=== PATIENT | female | born 1965 | race Caucasian/White ===

== ENCOUNTER 2021-02-27 15:02 | Emergency (ER) | payer OTHER ==
[2021-02-27] MEDS ORDERED: Lidocaine 1% w/Epinephrine 1:100K 20 ML VIAL ONE (16:47)
[2021-02-27] MEDS ORDERED: Bacitracin 1 PK ONE (16:47)
[2021-02-27] MEDS ORDERED: Boostrix 0.5 ML (Tdap) VIAL ONE (17:31)
== END 2021-02-27 17:59 | disposition home or self-care (01) ==
LOC: CSHERS 15:02
DX: S01.111A Laceration without foreign body of right eyelid and periocular area, initial encounter (principal); M54.2 Cervicalgia; W19.XXXA Unspecified fall, initial encounter
CPT/HCPCS: 12011; 70450; 72125; 90471; 90715

== ENCOUNTER 2023-01-18 19:39 | Emergency (ER) | payer OTHER ==
[2023-01-18 21:33] LABS: #Basophils 0.1 10x3/uL (0.0-0.2); #Eosinphils 0.1 10x3/uL (0.0-0.5); #Monocytes 0.5 10x3/uL (0.0-1.1); #Neutrophils 5.7 10x3/uL (1.5-8.4); %Basophils 0.6 % (0.0-2.0); %Eosinophils 1.1 % (0.0-6.0); %Lymphocytes 24.7 % (18.0-47.0); %Monocytes 5.9 % (0.0-10.0); %Neutrophils 67.6 % (40.0-75.0); Hemoglobin 13.1 g/dL (12.0-15.5); Mean Corpuscular HGB CONC 32.3 g/dL (32.0-36.0); Mean Corpuscular Hemoglobin 29.2 pg (27.0-33.0); Mean Corpuscular Volume 90.2 fl (81.6-98.3); Mean Platelet Volume 9.4 fl (7.4-10.4); Platelet Count 292 10x3/uL (150-450); RBC Distribution Width 12.8 % (11.5-14.5); Red Blood Cell (RBC) Count 4.49 10x6/uL (3.90-5.03); White Blood Cell (WBC) Count 8.5 10x3/uL (3.5-10.5)
[2023-01-18 21:40] LABS: ALT (SGPT) 20 U/L (8-55); AST (SGOT) 18 U/L (5-34); Albumin 4.1 g/dL (3.5-5.0); Alkaline Phosphatase 105 U/L (40-110); Anion Gap 14 mmol/L (10-20); BUN (Urea Nitrogen) 8 mg/dL (9.8-20.1); Bilirubin, Total 0.4 mg/dL (0.2-1.2); Calc. Creatinine Clearance 0 mL/min (70-130); Carbon Dioxide 26 mmol/L (22-29); Chloride 103 mmol/L (98-107); Estimated GFR 73; Globulin 2.6 g/dL (2.4-3.5); Glucose 100 mg/dL (70-105); Lipase 16 U/L (8-78); Protein, Total 6.7 g/dL (6.0-8.3); Sodium 139 mmol/L (136-145)
[2023-01-18 21:54] LABS: Bilirubin Neg (Negative); Blood, Urine Negative (Negative); Clarity Clear (Clear); Glucose, Urine (Dipstick) Normal (Negative); Ketone, Urine Negative (Negative); Leukocyte Negative (Negative); Nitrite Negative (Negative); Protein, Urine (Dipstick) Negative (Neg-Trace); Specific Gravity, Urine 1.005 (1.005-1.030); Urobilinogen Normal mg/dL (Less than 2)
[2023-01-18] MEDS ORDERED: GoLYTELY 4,000 ml Bottle PO ONE (22:30)
== END 2023-01-18 22:40 | disposition home or self-care (01) ==
LOC: CSHERS 19:39
DX: K59.00 Constipation, unspecified (principal); E78.5 Hyperlipidemia, unspecified; E78.00 Pure hypercholesterolemia, unspecified; I10 Essential (primary) hypertension
CPT/HCPCS: 36415; 74176; 80053; 81003; 83690; 85025

== ENCOUNTER 2023-01-21 15:11 | Outpatient (CLI) | payer OTHER | END 2023-01-21 15:12 | disposition home or self-care (01) | LOC: CSHCT 15:11 | PROVIDERS: ATTEND Family Medicine | DX: F03.B0 Unspecified dementia, moderate, without behavioral disturbance, psychotic disturbance, mood disturbance, and anxiety (principal) | CPT/HCPCS: 70450 ==

== ENCOUNTER 2023-06-06 13:31 | Outpatient (CLI) | payer OTHER | END 2023-06-06 13:32 | disposition home or self-care (01) | LOC: CSHRAD 13:31 | PROVIDERS: ATTEND Nurse Practitioner Family | DX: R10.11 Right upper quadrant pain (principal); R10.31 Right lower quadrant pain; M25.512 Pain in left shoulder; R19.5 Other fecal abnormalities; M19.012 Primary osteoarthritis, left shoulder; M24.012 Loose body in left shoulder | CPT/HCPCS: 74018 ==

== ENCOUNTER 2023-07-26 16:48 | Inpatient (IN) | payer OTHER ==
[~2023-07-26 16:48] MED LIST: Iopamidol 300 61% 100 ML VIAL FS ONE
[2023-07-26 17:46] LABS: ALT (SGPT) 17 U/L (8-55); AST (SGOT) 19 U/L (5-34); Alkaline Phosphatase 104 U/L (40-110); Anion Gap 14 mmol/L (10-20); BUN (Urea Nitrogen) 9 mg/dL (9.8-20.1); Bilirubin, Total 0.5 mg/dL (0.2-1.2); Calc. Creatinine Clearance 0 mL/min (70-130); Calcium 9.1 mg/dL (7.8-10.44); Carbon Dioxide 27 mmol/L (22-29); Chloride 105 mmol/L (98-107); Estimated GFR 69; Globulin 2.3 g/dL (2.4-3.5); Glucose 114 mg/dL (70-105); Potassium 3.9 mmol/L (3.5-5.1); Protein, Total 6.3 g/dL (6.0-8.3); Sodium 142 mmol/L (136-145)
[2023-07-26 17:51] LABS: #Eosinphils 0.1 10x3/uL (0.0-0.5); #Monocytes 0.4 10x3/uL (0.0-1.1); %Basophils 0.7 % (0.0-2.0); %Eosinophils 1.4 % (0.0-6.0); %Lymphocytes 36.3 % (18.0-47.0); %Monocytes 6.3 % (0.0-10.0); %Neutrophils 55.1 % (40.0-75.0); Hematocrit 40.7 % (34.9-44.5); Hemoglobin 13.1 g/dL (12.0-15.5); Mean Corpuscular HGB CONC 32.2 g/dL (32.0-36.0); Mean Corpuscular Hemoglobin 28.3 pg (27.0-33.0); Mean Corpuscular Volume 87.9 fl (81.6-98.3); Mean Platelet Volume 9.7 fl (7.4-10.4); Platelet Count 283 10x3/uL (150-450); RBC Distribution Width 13.8 % (11.5-14.5); Red Blood Cell (RBC) Count 4.63 10x6/uL (3.90-5.03); White Blood Cell (WBC) Count 5.5 10x3/uL (3.5-10.5)
[2023-07-26] MEDS ORDERED: Morphine 4 MG/ML VIAL ONE (18:09)
[2023-07-26] MEDS ORDERED: Ondansetron PF 4 MG/2 ML Vial ONE (18:10)
[2023-07-26] MEDS ORDERED: Magnesium Citrate 300 ML BOT PO SCH (20:00)
[2023-07-26] MEDS ORDERED: Mineral Oil ENEMA ONE (20:37)
[2023-07-26 20:55] LABS: Bilirubin Neg (Negative); Blood, Urine Negative (Negative); Clarity Clear (Clear); Glucose, Urine (Dipstick) Normal (Negative); Ketone, Urine Negative (Negative); Leukocyte Negative (Negative); Nitrite Negative (Negative); Protein, Urine (Dipstick) Negative (Neg-Trace); Urobilinogen Normal mg/dL (Less than 2)
[2023-07-26 21:25] LABS: Bacteria/HPF None Seen HPF (None Seen); CAUTI Indications for Culture Pelvic or flank pain; RBC/HPF None Seen HPF (0-3); Squamous Epithelial 0-3 HPF (0-3); WBC/HPF None Seen HPF (0-3)
[2023-07-26 21:26] LABS: Urine Culture Reflex No No
[2023-07-27] MEDS ORDERED: Ondansetron ODT 4 MG TAB PO PRN (00:01)
[2023-07-27] MEDS ORDERED: GoLYTELY 4,000 ml Bottle PO SCH (00:30)
[2023-07-27] MEDS ORDERED: Meclizine HCl 12.5 MG TAB PO SCH (00:30)
[2023-07-27 00:40] LABS: Magnesium 2.1 mg/dL (1.6-2.6)
[2023-07-27 00:49] VITALS: BMI 23.3
[2023-07-27] MEDS: Potassium Chloride 20 MEQ in Lactated Ringer's 1,000 ML IV SCH ×2 (02:33→16:22)
[2023-07-27] MEDS: Mineral Oil ENEMA PR SCH ×3 (02:34→06:12)
[2023-07-27 04:31] LABS: #Basophils 0.1 10x3/uL (0.0-0.2); #Monocytes 0.4 10x3/uL (0.0-1.1); #Neutrophils 4.1 10x3/uL (1.5-8.4); %Basophils 0.8 % (0.0-2.0); %Eosinophils 0.6 % (0.0-6.0); %Lymphocytes 25.9 % (18.0-47.0); %Neutrophils 65.5 % (40.0-75.0); Hematocrit 38.4 % (34.9-44.5); Hemoglobin 12.1 g/dL (12.0-15.5); Mean Corpuscular HGB CONC 31.5 g/dL (32.0-36.0); Mean Corpuscular Volume 92.1 fl (81.6-98.3); Mean Platelet Volume 9.8 fl (7.4-10.4); Platelet Count 236 10x3/uL (150-450); RBC Distribution Width 13.8 % (11.5-14.5); Red Blood Cell (RBC) Count 4.17 10x6/uL (3.90-5.03); White Blood Cell (WBC) Count 6.3 10x3/uL (3.5-10.5)
[2023-07-27 04:43] LABS: Anion Gap 13 mmol/L (10-20); BUN (Urea Nitrogen) 6 mg/dL (9.8-20.1); Calc. Creatinine Clearance 0 mL/min (70-130); Calcium 8.7 mg/dL (7.8-10.44); Carbon Dioxide 28 mmol/L (22-29); Chloride 104 mmol/L (98-107); Estimated GFR 84; Glucose 91 mg/dL (70-105); Potassium 4.6 mmol/L (3.5-5.1); Sodium 140 mmol/L (136-145)
[2023-07-27] MEDS ORDERED: Mineral Oil ENEMA PR SCH (07:00)
[2023-07-27] MEDS: Senokot 8.6 MG TAB PO SCH ×2 (08:52→21:19)
[2023-07-27] MEDS: Polyethylene Glycol 3350 17 GM Packet PO SCH (08:52)
[2023-07-27] MEDS ORDERED: traMADol HCl 50 MG TAB PO SCH (10:00)
[2023-07-27] MEDS ORDERED: Ipratropium/Albuterol 3 ML NEB NEB PRN ×2 (17:25→17:36)
[2023-07-27] MEDS ORDERED: Ketorolac Tromethamine 30 MG/ML VIAL IVP PRN (18:36)
[2023-07-27] MEDS ORDERED: hydrALAZINE 20 MG/ML VIAL SLOW IVP PRN (18:48)
[2023-07-27] MEDS: Morphine 4 MG/ML VIAL SLOW IVP PRN (18:57)
[2023-07-27] MEDS: Ondansetron PF 4 MG/2 ML Vial IVP PRN (19:03)
[2023-07-28 04:03] LABS: Lactic Acid 0.6 mmol/L (0.5-2.2)
[2023-07-28 04:04] LABS: Anion Gap 16 mmol/L (10-20); BUN (Urea Nitrogen) 6 mg/dL (9.8-20.1); Calc. Creatinine Clearance 80 mL/min (70-130); Calcium 8.9 mg/dL (7.8-10.44); Carbon Dioxide 25 mmol/L (22-29); Chloride 104 mmol/L (98-107); Estimated GFR 87; Glucose 106 mg/dL (70-105); Potassium 4.4 mmol/L (3.5-5.1); Sodium 141 mmol/L (136-145)
[2023-07-28 04:09] LABS: Hematocrit 37.5 % (34.9-44.5); Hemoglobin 12.1 g/dL (12.0-15.5); Mean Corpuscular HGB CONC 32.3 g/dL (32.0-36.0); Mean Corpuscular Hemoglobin 28.5 pg (27.0-33.0); Mean Corpuscular Volume 88.4 fl (81.6-98.3); Mean Platelet Volume 9.7 fl (7.4-10.4); Platelet Count 246 10x3/uL (150-450); RBC Distribution Width 13.9 % (11.5-14.5); Red Blood Cell (RBC) Count 4.24 10x6/uL (3.90-5.03); White Blood Cell (WBC) Count 10.7 10x3/uL (3.5-10.5)
[2023-07-28] MEDS: Potassium Chloride 20 MEQ in Lactated Ringer's 1,000 ML IV SCH ×2 (06:33→15:16)
[2023-07-28] MEDS: Morphine 4 MG/ML VIAL SLOW IVP PRN (07:45)
[2023-07-28] MEDS: Polyethylene Glycol 3350 17 GM Packet PO SCH (07:46)
[2023-07-28] MEDS: Pantoprazole 40 MG VIAL IVP SCH (07:46)
[2023-07-28] MEDS: Senokot 8.6 MG TAB PO SCH ×3 (09:48→21:01)
[2023-07-28] MEDS: Ondansetron PF 4 MG/2 ML Vial IVP PRN (12:44)
[2023-07-28] MEDS ORDERED: DULoxetine 30 MG CAP PO SCH (15:00)
[2023-07-28] MEDS: Gabapentin 400 MG CAP PO SCH ×2 (15:15→21:01)
[2023-07-29] MEDS: Naloxegol 12.5 MG TAB PO SCH (07:38)
[2023-07-29] MEDS: Senokot 8.6 MG TAB PO SCH ×2 (08:46→20:51)
[2023-07-29] MEDS: DULoxetine 30 MG CAP PO SCH (08:46)
[2023-07-29] MEDS: Polyethylene Glycol 3350 17 GM Packet PO SCH (08:46)
[2023-07-29] MEDS: Pantoprazole 40 MG VIAL IVP SCH (08:47)
[2023-07-29] MEDS: Gabapentin 400 MG CAP PO SCH ×3 (08:47→20:50)
[2023-07-29] MEDS: traMADol HCl 50 MG TAB PO PRN (12:17)
[2023-07-29] MEDS: Morphine 4 MG/ML VIAL SLOW IVP PRN (13:37)
[2023-07-29] MEDS: Potassium Chloride 20 MEQ in Lactated Ringer's 1,000 ML IV SCH (14:30)
[2023-07-29 14:48] LABS: Troponin I 0.013 ng/mL (< 0.028)
[2023-07-29 17:30] LABS: Troponin I Less than 0.010 ng/mL (< 0.028)
[2023-07-29] MEDS ORDERED: traZODone HCl 50 MG TAB PO SCH (21:00)
[2023-07-30] MEDS: Potassium Chloride 20 MEQ in Lactated Ringer's 1,000 ML IV SCH ×3 (04:03→23:55)
[2023-07-30] MEDS: DULoxetine 30 MG CAP PO SCH (08:14)
[2023-07-30] MEDS: Pantoprazole 40 MG VIAL IVP SCH (08:14)
[2023-07-30] MEDS: Polyethylene Glycol 3350 17 GM Packet PO SCH (08:14)
[2023-07-30] MEDS: Gabapentin 400 MG CAP PO SCH ×3 (08:15→20:19)
[2023-07-30] MEDS: Naloxegol 12.5 MG TAB PO SCH (08:36)
[2023-07-30] MEDS: Senokot 8.6 MG TAB PO SCH ×2 (08:37→20:19)
[2023-07-30] MEDS: traMADol HCl 50 MG TAB PO PRN ×2 (15:36→21:54)
[2023-07-30] MEDS ORDERED: traZODone HCl 50 MG TAB PO SCH (21:30)
[2023-07-30] MEDS: Morphine 4 MG/ML VIAL SLOW IVP PRN (21:45)
[2023-07-31] MEDS: Naloxegol 12.5 MG TAB PO SCH (06:59)
[2023-07-31] MEDS ORDERED: Iopamidol 300 61% 100 ML VIAL FS ONE (08:47)
[2023-07-31 09:27] LABS: ALT (SGPT) 25 U/L (8-55); AST (SGOT) 25 U/L (5-34); Albumin 3.4 g/dL (3.5-5.0); Alkaline Phosphatase 101 U/L (40-110); Anion Gap 14 mmol/L (10-20); BUN (Urea Nitrogen) 5 mg/dL (9.8-20.1); Bilirubin, Total 0.5 mg/dL (0.2-1.2); Calc. Creatinine Clearance 73 mL/min (70-130); Calcium 9.2 mg/dL (7.8-10.44); Carbon Dioxide 27 mmol/L (22-29); Chloride 105 mmol/L (98-107); Estimated GFR 84; Globulin 2.6 g/dL (2.4-3.5); Glucose 93 mg/dL (70-105); Potassium 4.8 mmol/L (3.5-5.1); Sodium 141 mmol/L (136-145)
[2023-07-31 09:34] LABS: Hematocrit 43.2 % (34.9-44.5); Mean Corpuscular HGB CONC 32.4 g/dL (32.0-36.0); Mean Corpuscular Hemoglobin 28.7 pg (27.0-33.0); Mean Corpuscular Volume 88.5 fl (81.6-98.3); Mean Platelet Volume 10.7 fl (7.4-10.4); Platelet Count 164 10x3/uL (150-450); RBC Distribution Width 14.1 % (11.5-14.5); Red Blood Cell (RBC) Count 4.88 10x6/uL (3.90-5.03); White Blood Cell (WBC) Count 5.4 10x3/uL (3.5-10.5)
[2023-07-31 09:35] LABS: #Eosinphils 0.1 10x3/uL (0.0-0.5); #Monocytes 0.4 10x3/uL (0.0-1.1); #Neutrophils 3.4 10x3/uL (1.5-8.4); %Basophils 0.6 % (0.0-2.0); %Monocytes 6.7 % (0.0-10.0); %Neutrophils 63.1 % (40.0-75.0)
[2023-07-31] MEDS: Pantoprazole 40 MG VIAL IVP SCH (09:35)
[2023-07-31] MEDS: DULoxetine 30 MG CAP PO SCH (09:36)
[2023-07-31] MEDS: Senokot 8.6 MG TAB PO SCH (09:36)
[2023-07-31] MEDS: Polyethylene Glycol 3350 17 GM Packet PO SCH (09:37)
[2023-07-31] MEDS: Gabapentin 400 MG CAP PO SCH (09:37)
[2023-07-31] MEDS: Ondansetron PF 4 MG/2 ML Vial IVP PRN (12:02)
[2023-07-31] MEDS: Potassium Chloride 20 MEQ in Lactated Ringer's 1,000 ML IV SCH (13:11)
[2023-07-31 14:36] VITALS: BP 185/85; TEMP 97.9
[2023-07-31] MEDS ORDERED: traZODone HCl 50 MG TAB PO SCH (21:00)
== END 2023-07-31 13:50 | disposition home or self-care (01) | DRG 392 ==
LOC: CSHERS 16:48 → CSHTELE 07-27 00:11 → OBSVTOIN 07-27 12:25 → CSHICU 07-27 15:31 → CSHTELE 07-30 15:28
PROVIDERS: ADMIT Family Medicine; ATTEND Family Medicine
DX: K59.81 Ogilvie syndrome (principal); I69.351 Hemiplegia and hemiparesis following cerebral infarction affecting right dominant side; K56.7 Ileus, unspecified; G89.29 Other chronic pain; R33.9 Retention of urine, unspecified; G62.9 Polyneuropathy, unspecified; M19.90 Unspecified osteoarthritis, unspecified site; E78.00 Pure hypercholesterolemia, unspecified; I10 Essential (primary) hypertension; K59.03 Drug induced constipation; T40.2X5A Adverse effect of other opioids, initial encounter; R42 Dizziness and giddiness; Z90.49 Acquired absence of other specified parts of digestive tract; Z87.820 Personal history of traumatic brain injury; Z87.891 Personal history of nicotine dependence; Z82.49 Family history of ischemic heart disease and other diseases of the circulatory system; R00.1 Bradycardia, unspecified; Z79.899 Other long term (current) drug therapy
CPT/HCPCS: 36415; 51701; 51798; 74018; 74177; 80048; 80053; 81001; 83605; 83735; 84484; 85025; 85027; 93005; 93010; 94760; 94762; 96372; 96374; 96375; C9113; G0378; J1650; J2270; J2405; J2710; J3480; J7120; Q9967

== ENCOUNTER 2024-01-20 15:05 | Outpatient (CLI) | payer BC | END 2024-01-20 15:06 | disposition home or self-care (01) | LOC: CSHULT 15:05 | PROVIDERS: ATTEND Family Medicine | DX: R32 Unspecified urinary incontinence (principal) | CPT/HCPCS: 76770 ==

== ENCOUNTER 2024-05-17 15:11 | Inpatient (IN) | payer BC ==
[2024-05-17 22:28] VITALS: BMI 18.1
[2024-05-18 09:46] VITALS: BMI 18.1
[2024-05-22 16:18] VITALS: BP 107/59; TEMP 98
== END 2024-05-22 18:40 | disposition home or self-care (01) | DRG 392 ==
LOC: CSHERS 15:11 → CSHTELE 20:02 → OBSVTOIN 05-19 14:42
PROVIDERS: ADMIT Student in an Organized Health Care Education/Training Program; ATTEND Internal Medicine
DX: K59.03 Drug induced constipation (principal); I69.951 Hemiplegia and hemiparesis following unspecified cerebrovascular disease affecting right dominant side; I10 Essential (primary) hypertension; E78.5 Hyperlipidemia, unspecified; G89.4 Chronic pain syndrome; T40.2X5A Adverse effect of other opioids, initial encounter; R33.9 Retention of urine, unspecified; Z87.820 Personal history of traumatic brain injury; Z79.899 Other long term (current) drug therapy
CPT/HCPCS: 36415; 74177; 80048; 80053; 81001; 83605; 83690; 83735; 84443; 85025; 87086; 93005; 96372; 96374; 96375; 96376; C9113; G0378; J1650; J1885; J2270; J2405; J3475; J7120; Q9967

== ENCOUNTER 2024-09-05 08:37 | Day surgery (SDC) | payer BC ==
[2024-09-05 09:02] VITALS: BP 167/71; TEMP 98.6
[2024-09-05] MEDS ORDERED: Iopamidol-M 200 41% 10 ML VIAL FS ONE (10:27)
== END 2024-09-05 11:00 | disposition home or self-care (01) ==
LOC: CSHRAD 08:37
PROVIDERS: ATTEND Pain Medicine Interventional Pain Medicine
PROC: B00BYZZ Plain Radiography of Spinal Cord using Other Contrast (ICD-10-PCS; principal; 2024-09-05)
DX: G90.529 Complex regional pain syndrome I of unspecified lower limb (principal)
CPT/HCPCS: 62284; 72129; 72132; 77003; Q9966

== ENCOUNTER 2024-12-28 12:16 | Inpatient (IN) | payer BC ==
[2024-12-28] MEDS ORDERED: Iopamidol 300 61% 100 ML VIAL FS ONE (13:05)
[2024-12-28] MEDS ORDERED: Haloperidol Lactate 5 MG/ML VIAL ONE (13:16)
[2024-12-28 13:42] LABS: #Basophils Less than 0.03 10x3/uL (0.0-0.2); #Eosinophils Less than 0.03 10x3/uL (0.0-0.5); #Monocytes 0.79 10x3/uL (0.0-1.1); #Neutrophils 19.87 10x3/uL (1.5-8.4); %Basophils 0.1 % (0.0-2.0); %Lymphocytes 2.8 % (18.0-47.0); %Monocytes 3.7 % (0.0-10.0); %Neutrophils 92.8 % (40.0-75.0); Hematocrit 37.9 % (34.9-44.5); Hemoglobin 12.6 g/dL (12.0-15.5); Mean Corpuscular HGB CONC 33.2 g/dL (32.0-36.0); Mean Corpuscular Hemoglobin 29.5 pg (27.0-33.0); Mean Corpuscular Volume 88.8 fL (81.6-98.3); Mean Platelet Volume 9.2 fL (7.4-10.4); Platelet Count 405 10x3/uL (150-450); RBC Distribution Width 13.1 % (11.5-14.5); Red Blood Cell (RBC) Count 4.27 10x6/uL (3.90-5.03); White Blood Cell (WBC) Count 21.41 10x3/uL (3.5-10.5)
[2024-12-28 14:00] LABS: ALT (SGPT) 28 U/L (Less than 34); AST (SGOT) 31 U/L (11-34); Albumin 4.3 g/dL (3.1-4.5); Alkaline Phosphatase 87 U/L (40-110); Anion Gap 18 mmol/L (10-20); BUN (Urea Nitrogen) 34 mg/dL (9.8-20.1); Calc. Creatinine Clearance 0 mL/min (70-130); Calcium 9.5 mg/dL (7.8-10.44); Carbon Dioxide 26 mmol/L (23-31); Chloride 102 mmol/L (98-107); Estimated GFR 63; Globulin 2.9 g/dL (2.4-3.5); Glucose 138 mg/dL (80-115); Lipase 48 U/L (8-78); Potassium 4.1 mmol/L (3.5-5.1); Protein, Total 7.2 g/dL (5.8-8.1); Sodium 142 mmol/L (136-145)
[2024-12-28 14:06] LABS: Troponin I 0.017 ng/mL (< 0.028)
[2024-12-28 14:42] LABS: Bilirubin Neg (Negative); Blood, Urine Negative (Negative); Glucose, Urine (Dipstick) 50 mg/dL (Negative); Ketone, Urine 50 mg/dL (Negative); Leukocyte Negative (Negative); Nitrite Negative (Negative); Protein, Urine (Dipstick) 30 mg/dl (Neg-Trace); Specific Gravity, Urine 1.025 (1.005-1.030); Urobilinogen Normal mg/dL (Less than 2)
[2024-12-28 16:36] LABS: Clarity Slightly Cloudy (Clear)
[2024-12-28 16:38] LABS: Bacteria/HPF 2+ HPF (None Seen); CAUTI Indications for Culture Alt mental st,lethar; Mucous/LPF Rare LPF (<2+); RBC/HPF 0-3 HPF (0-3); Squamous Epithelial 0-3 HPF (0-3); Transitional Epithelial 0-3 HPF (None Seen); WBC/HPF 0-3 HPF (0-3)
[2024-12-28 16:40] LABS: Urine Culture Reflex No No
[2024-12-28] MEDS ORDERED: Midazolam HCl 2 mg/2 ml Vial ONE ×2 (17:32→19:49)
[2024-12-28] MEDS ORDERED: cefTRIAXone (ROCEPHIN) 1 GM VIAL ONE (19:27)
[2024-12-28] MEDS ORDERED: Communication Order-Pharmacy FS PRN (19:53)
[2024-12-28 21:48] LABS: Magnesium 2.5 mg/dL (1.6-2.6)
[2024-12-28] MEDS: DULoxetine 30 MG CAP PO SCH (21:55)
[2024-12-28] MEDS: traMADol HCl 50 MG TAB PO SCH (21:55)
[2024-12-28] MEDS: traZODone HCl 50 MG TAB PO SCH (21:55)
[2024-12-28] MEDS: Cyclobenzaprine 10 MG TAB PO SCH (21:56)
[2024-12-28] MEDS: Sodium Chloride 0.9% 1,000 ML IV SCH (22:03)
[2024-12-28 22:06] VITALS: BMI 16.9
[2024-12-28] MEDS: Acetaminophen/Codeine 30-300mg Tablet PO SCH (22:32)
[2024-12-28] MEDS: Cefepime 2 GM in Sodium Chloride 0.9% 100 ML IVPB SCH (22:57)
[2024-12-28] MEDS: Vancomycin 1 GM in Sodium Chloride 0.9% 250 ML 250 ML IVPB SCH (23:00)
[2024-12-29] MEDS: Diazepam 10 MG/2 ML SYRINGE IVP SCH ×2 (01:57→03:38)
[2024-12-29] MEDS: Baclofen 10 MG TAB PO SCH ×2 (02:08→08:48)
[2024-12-29 05:07] LABS: #Basophils Less than 0.03 10x3/uL (0.0-0.2); #Eosinophils Less than 0.03 10x3/uL (0.0-0.5); #Monocytes 0.66 10x3/uL (0.0-1.1); #Neutrophils 9.32 10x3/uL (1.5-8.4); %Basophils 0.1 % (0.0-2.0); %Lymphocytes 11.8 % (18.0-47.0); %Monocytes 5.8 % (0.0-10.0); %Neutrophils 81.9 % (40.0-75.0); Hematocrit 36.9 % (34.9-44.5); Hemoglobin 11.9 g/dL (12.0-15.5); Mean Corpuscular HGB CONC 32.2 g/dL (32.0-36.0); Mean Platelet Volume 8.9 fL (7.4-10.4); Platelet Count 288 10x3/uL (150-450); RBC Distribution Width 13.2 % (11.5-14.5); White Blood Cell (WBC) Count 11.38 10x3/uL (3.5-10.5)
[2024-12-29 05:23] LABS: Anion Gap 17 mmol/L (10-20); BUN (Urea Nitrogen) 26 mg/dL (9.8-20.1); Calc. Creatinine Clearance 60 mL/min (70-130); Calcium 8.7 mg/dL (7.8-10.44); Carbon Dioxide 21 mmol/L (23-31); Chloride 109 mmol/L (98-107); Estimated GFR 92; Glucose 98 mg/dL (80-115); Potassium 3.3 mmol/L (3.5-5.1); Sodium 144 mmol/L (136-145)
[2024-12-29] MEDS: Enoxaparin 40 MG (0.4 mL) SYRINGE SC SCH (08:49)
[2024-12-29] MEDS: Pantoprazole 40 MG DR.TAB PO SCH (08:49)
[2024-12-29] MEDS: Naloxegol 12.5 MG TAB PO SCH (08:49)
[2024-12-29] MEDS: Polyethylene Glycol 3350 17 GM Packet PO SCH (08:49)
[2024-12-29] MEDS: Lubiprostone 8 MCG CAP PO SCH (08:49)
[2024-12-29] MEDS ORDERED: Electrolyte Replacement Protocol 1 EACH FS SCH (11:15)
[2024-12-29] MEDS: Vancomycin HCl 750 MG in Sodium Chloride 0.9% 250 ML 250 ML IVPB SCH (12:25)
[2024-12-29] MEDS: Potassium Chloride 20 MEQ in Premix 1 BAG IVPB SCH ×2 (12:50→21:01)
[2024-12-29] MEDS: Potassium Chloride 20 MEQ TAB PO SCH ×2 (14:05)
[2024-12-29 17:26] VITALS: BMI 16.9
[2024-12-29 19:06] LABS: Potassium 3.3 mmol/L (3.5-5.1)
[2024-12-30] MEDS: traZODone HCl 50 MG TAB PO SCH (00:45)
[2024-12-30 05:10] LABS: #Basophils Less than 0.03 10x3/uL (0.0-0.2); #Eosinophils Less than 0.03 10x3/uL (0.0-0.5); #Monocytes 0.84 10x3/uL (0.0-1.1); #Neutrophils 6.91 10x3/uL (1.5-8.4); %Lymphocytes 18.3 % (18.0-47.0); %Monocytes 8.8 % (0.0-10.0); %Neutrophils 72.5 % (40.0-75.0); Hematocrit 39.5 % (34.9-44.5); Hemoglobin 12.6 g/dL (12.0-15.5); Mean Corpuscular HGB CONC 31.9 g/dL (32.0-36.0); Mean Corpuscular Hemoglobin 29.5 pg (27.0-33.0); Mean Corpuscular Volume 92.5 fL (81.6-98.3); Mean Platelet Volume 8.9 fL (7.4-10.4); Platelet Count 249 10x3/uL (150-450); RBC Distribution Width 13.5 % (11.5-14.5); Red Blood Cell (RBC) Count 4.27 10x6/uL (3.90-5.03); White Blood Cell (WBC) Count 9.54 10x3/uL (3.5-10.5)
[2024-12-30 05:31] LABS: Anion Gap 17 mmol/L (10-20); BUN (Urea Nitrogen) 18 mg/dL (9.8-20.1); Calc. Creatinine Clearance 71 mL/min (70-130); Carbon Dioxide 19 mmol/L (23-31); Chloride 107 mmol/L (98-107); Estimated GFR 101; Glucose 67 mg/dL (80-115); Magnesium 2.1 mg/dL (1.6-2.6); Phosphorus 2.5 mg/dL (2.5-4.5); Potassium 3.9 mmol/L (3.5-5.1); Sodium 139 mmol/L (136-145)
[2024-12-30] MEDS: Sodium Chloride 0.9% 1,000 ML IV SCH (15:57)
[2024-12-31 05:29] LABS: #Basophils Less than 0.03 10x3/uL (0.0-0.2); #Eosinophils 0.03 10x3/uL (0.0-0.5); #Monocytes 0.45 10x3/uL (0.0-1.1); #Neutrophils 6.39 10x3/uL (1.5-8.4); %Basophils 0.1 % (0.0-2.0); %Eosinophils 0.4 % (0.0-6.0); %Lymphocytes 15.9 % (18.0-47.0); %Monocytes 5.5 % (0.0-10.0); %Neutrophils 77.9 % (40.0-75.0); Hematocrit 32.9 % (34.9-44.5); Hemoglobin 11.2 g/dL (12.0-15.5); Mean Corpuscular Hemoglobin 30.5 pg (27.0-33.0); Mean Corpuscular Volume 89.6 fL (81.6-98.3); Platelet Count 263 10x3/uL (150-450); RBC Distribution Width 13.2 % (11.5-14.5); Red Blood Cell (RBC) Count 3.67 10x6/uL (3.90-5.03)
[2024-12-31 05:47] LABS: Anion Gap 13 mmol/L (10-20); BUN (Urea Nitrogen) 12 mg/dL (9.8-20.1); Calc. Creatinine Clearance 82 mL/min (70-130); Calcium 8.5 mg/dL (7.8-10.44); Carbon Dioxide 22 mmol/L (23-31); Chloride 108 mmol/L (98-107); Estimated GFR 105; Glucose 88 mg/dL (80-115); Potassium 3.2 mmol/L (3.5-5.1); Sodium 140 mmol/L (136-145)
[2024-12-31] MEDS: Potassium Chloride 20 MEQ TAB PO SCH (11:00)
[2024-12-31] MEDS ORDERED: Cyclobenzaprine 10 MG TAB PO PRN (12:03)
[2024-12-31] MEDS: hydrALAZINE 20 MG/ML VIAL SLOW IVP PRN (20:57)
[2024-12-31] MEDS: traMADol HCl 50 MG TAB PO SCH (21:03)
[2025-01-01 08:21] LABS: #Basophils Less than 0.03 10x3/uL (0.0-0.2); #Eosinophils Less than 0.03 10x3/uL (0.0-0.5); #Monocytes 0.36 10x3/uL (0.0-1.1); #Neutrophils 6.34 10x3/uL (1.5-8.4); %Eosinophils 0.1 % (0.0-6.0); %Lymphocytes 14.4 % (18.0-47.0); %Monocytes 4.6 % (0.0-10.0); %Neutrophils 80.6 % (40.0-75.0); Anion Gap 16 mmol/L (10-20); BUN (Urea Nitrogen) 7 mg/dL (9.8-20.1); Calc. Creatinine Clearance 89 mL/min (70-130); Calcium 8.8 mg/dL (7.8-10.44); Carbon Dioxide 20 mmol/L (23-31); Chloride 104 mmol/L (98-107); Estimated GFR 107; Glucose 109 mg/dL (80-115); Hematocrit 38.1 % (34.9-44.5); Hemoglobin 12.6 g/dL (12.0-15.5); Mean Corpuscular HGB CONC 33.1 g/dL (32.0-36.0); Mean Corpuscular Hemoglobin 29.5 pg (27.0-33.0); Mean Corpuscular Volume 89.2 fL (81.6-98.3); Mean Platelet Volume 8.9 fL (7.4-10.4); Platelet Count 262 10x3/uL (150-450); Potassium 2.9 mmol/L (3.5-5.1); RBC Distribution Width 12.8 % (11.5-14.5); Red Blood Cell (RBC) Count 4.27 10x6/uL (3.90-5.03); Sodium 137 mmol/L (136-145); White Blood Cell (WBC) Count 7.86 10x3/uL (3.5-10.5)
[2025-01-01] MEDS: Potassium Chloride 20 MEQ in Premix 1 BAG IVPB SCH (10:25)
[2025-01-01] MEDS: Lansoprazole 3 MG/ML ORAL SUSPENSION PER TUBE SCH (12:38)
[2025-01-01] MEDS: Potassium Bicarbonate/Cit Ac 20 MEQ TAB PER TUBE SCH (12:38)
[2025-01-01] MEDS: Lidocaine 4% Topical Sol 50 ML BOT FS SCH (17:21)
[2025-01-02 05:20] LABS: #Basophils Less than 0.03 10x3/uL (0.0-0.2); #Eosinophils 0.03 10x3/uL (0.0-0.5); #Monocytes 0.55 10x3/uL (0.0-1.1); #Neutrophils 7.12 10x3/uL (1.5-8.4); %Eosinophils 0.3 % (0.0-6.0); %Lymphocytes 15.2 % (18.0-47.0); %Neutrophils 78.2 % (40.0-75.0); Hematocrit 37.9 % (34.9-44.5); Hemoglobin 12.2 g/dL (12.0-15.5); Mean Corpuscular HGB CONC 32.2 g/dL (32.0-36.0); Mean Corpuscular Hemoglobin 29.3 pg (27.0-33.0); Mean Corpuscular Volume 90.9 fL (81.6-98.3); Platelet Count 242 10x3/uL (150-450); RBC Distribution Width 13.2 % (11.5-14.5); Red Blood Cell (RBC) Count 4.17 10x6/uL (3.90-5.03); White Blood Cell (WBC) Count 9.12 10x3/uL (3.5-10.5)
[2025-01-02 05:36] LABS: Vancomycin, Random 5.5 ug/mL (See Comment)
[2025-01-02 05:41] LABS: Anion Gap 14 mmol/L (10-20); BUN (Urea Nitrogen) 11 mg/dL (9.8-20.1); Calc. Creatinine Clearance 75 mL/min (70-130); Calcium 8.9 mg/dL (7.8-10.44); Carbon Dioxide 24 mmol/L (23-31); Chloride 106 mmol/L (98-107); Estimated GFR 102; Glucose 106 mg/dL (80-115); Potassium 4.1 mmol/L (3.5-5.1); Sodium 140 mmol/L (136-145)
[2025-01-02] MEDS: Magnesium 2 GM/50 ML(in water) 2 GM in Premix 1 BAG IVPB SCH (09:22)
[2025-01-02] MEDS: Lansoprazole 3 MG/ML ORAL SUSPENSION PER TUBE SCH (09:41)
[2025-01-03 03:36] VITALS: TEMP 98.1
[2025-01-03 05:15] LABS: #Basophils Less than 0.03 10x3/uL (0.0-0.2); #Eosinophils 0.04 10x3/uL (0.0-0.5); #Monocytes 0.48 10x3/uL (0.0-1.1); #Neutrophils 4.65 10x3/uL (1.5-8.4); %Eosinophils 0.6 % (0.0-6.0); %Lymphocytes 21.4 % (18.0-47.0); %Monocytes 7.3 % (0.0-10.0); %Neutrophils 70.5 % (40.0-75.0); Hematocrit 39.3 % (34.9-44.5); Hemoglobin 12.6 g/dL (12.0-15.5); Mean Corpuscular HGB CONC 32.1 g/dL (32.0-36.0); Mean Corpuscular Hemoglobin 29.2 pg (27.0-33.0); Mean Corpuscular Volume 91.2 fL (81.6-98.3); Mean Platelet Volume 9.4 fL (7.4-10.4); Platelet Count 237 10x3/uL (150-450); RBC Distribution Width 13.2 % (11.5-14.5); Red Blood Cell (RBC) Count 4.31 10x6/uL (3.90-5.03); White Blood Cell (WBC) Count 6.59 10x3/uL (3.5-10.5)
[2025-01-03 05:30] LABS: Anion Gap 14 mmol/L (10-20); BUN (Urea Nitrogen) 7 mg/dL (9.8-20.1); Calc. Creatinine Clearance 84 mL/min (70-130); Calcium 9.1 mg/dL (7.8-10.44); Carbon Dioxide 23 mmol/L (23-31); Chloride 107 mmol/L (98-107); Estimated GFR 105; Glucose 109 mg/dL (80-115); Magnesium 2.2 mg/dL (1.6-2.6); Potassium 3.5 mmol/L (3.5-5.1); Sodium 140 mmol/L (136-145)
[2025-01-03] MEDS: Potassium Bicarbonate/Cit Ac 20 MEQ TAB PO SCH (08:43)
[2025-01-03] MEDS ORDERED: Ondansetron PF 4 MG/2 ML Vial ONE (09:04)
[2025-01-03 09:26] LABS: #Basophils Less than 0.03 10x3/uL (0.0-0.2); #Eosinophils 0.03 10x3/uL (0.0-0.5); #Neutrophils 3.98 10x3/uL (1.5-8.4); %Eosinophils 0.6 % (0.0-6.0); %Lymphocytes 17.7 % (18.0-47.0); %Monocytes 5.7 % (0.0-10.0); %Neutrophils 75.6 % (40.0-75.0); Hematocrit 36.2 % (34.9-44.5); Hemoglobin 11.8 g/dL (12.0-15.5); Mean Corpuscular HGB CONC 32.6 g/dL (32.0-36.0); Mean Corpuscular Hemoglobin 29.6 pg (27.0-33.0); Mean Corpuscular Volume 90.7 fL (81.6-98.3); Mean Platelet Volume 9.2 fL (7.4-10.4); Platelet Count 237 10x3/uL (150-450); RBC Distribution Width 13.3 % (11.5-14.5); Red Blood Cell (RBC) Count 3.99 10x6/uL (3.90-5.03); White Blood Cell (WBC) Count 5.26 10x3/uL (3.5-10.5)
[2025-01-03 09:46] LABS: ALT (SGPT) 23 U/L (Less than 34); AST (SGOT) 21 U/L (11-34); Albumin 3.4 g/dL (3.1-4.5); Alkaline Phosphatase 77 U/L (40-110); Anion Gap 15 mmol/L (10-20); BUN (Urea Nitrogen) 7 mg/dL (9.8-20.1); Bilirubin, Total 0.5 mg/dL (0.3-1.2); Calc. Creatinine Clearance 89 mL/min (70-130); Calcium 8.7 mg/dL (7.8-10.44); Carbon Dioxide 22 mmol/L (23-31); Chloride 106 mmol/L (98-107); Estimated GFR 107; Globulin 2.8 g/dL (2.4-3.5); Glucose 106 mg/dL (80-115); Magnesium 2.2 mg/dL (1.6-2.6); Phosphorus 2.7 mg/dL (2.5-4.5); Potassium 3.5 mmol/L (3.5-5.1); Protein, Total 6.2 g/dL (5.8-8.1); Sodium 139 mmol/L (136-145)
[2025-01-03 09:49] LABS: Troponin I Less than 0.010 ng/mL (< 0.028)
[2025-01-03 12:33] VITALS: BP 178/91
[2025-01-03 13:23] LABS: Potassium 3.4 mmol/L (3.5-5.1)
== END 2025-01-03 14:08 | disposition still patient (30) | DRG 71 ==
LOC: CSHERS 12:16 → CSHTELE 19:53 → UNDOADMIN 19:53 → CSHTELE 12-29 11:00
PROVIDERS: ADMIT Family Medicine; ATTEND Family Medicine
DX: G93.41 Metabolic encephalopathy (principal); I69.351 Hemiplegia and hemiparesis following cerebral infarction affecting right dominant side; E86.0 Dehydration; G25.2 Other specified forms of tremor; K59.09 Other constipation; I10 Essential (primary) hypertension; E78.5 Hyperlipidemia, unspecified; Z90.49 Acquired absence of other specified parts of digestive tract; Z87.891 Personal history of nicotine dependence
CPT/HCPCS: 0042T; 36415; 36416; 70450; 71045; 74177; 80048; 80053; 80202; 81001; 83605; 83690; 83735; 84100; 84145; 84146; 84443; 84484; 85025; 87040; 93005; J0360; J0692; J0696; J1630; J1650; J2250; J2405; J3360; J3370; J3475; J3480; J7030; J7050; Q9967